=== PATIENT | male | born 1955 | race Caucasian/White ===

== ENCOUNTER 2023-09-08 09:30 | Emergency (ER) | payer OTHER ==
[~2023-09-08] VITALS: Ht 170.2 cm; Wt 56.1 kg
[2023-09-08 10:05] VITALS: PULSE 87; RESP 12; TEMP 97.8; O2SAT 94
[2023-09-08] MEDS: SODIUM CHLORIDE 0.9% 1,000 ML IV ONE (10:38)
[2023-09-08 10:51] LABS: Basophils # (auto) 0 10 ^3/uL (0-0.2); Basophils % (auto) 0.7 % (0.0-2.0); Eosinophils # (auto) 0.2 10 ^3/uL (0-0.8); Eosinophils % (auto) 3.3 % (0.0-7.0); Hemoglobin 10.9 g/dL (13.5-17.5); Lymphocytes # (auto) 1.1 10 ^3/uL (0.4-5.4); Lymphocytes % (auto) 16.3 % (10.0-50.0); Mean Corpuscular Hemoglobin 27.4 pg (28.0-32.0); Mean Corpuscular Volume 83.1 fL (80.0-100.0); Monocytes # (auto) 0.4 10 ^3/uL (0-1.3); Monocytes % (auto) 6.7 % (0.0-12.0); Neutrophils # (auto) 4.9 10 ^3/uL (1.6-8.6); Nucleated Red Blood Cells % 0.2 %; Red Blood Cells 3.97 10^6/uL (4.5-5.90); Red Cell Distribution Width 13.5 % (11.8-14.3); White Blood Cell 6.7 10^3/uL (4.4-10.8)
[2023-09-08 11:10] LABS: Alanine Aminotransferase 12 U/L (7-40); Alkaline Phosphatase 81 U/L (46-116); Anion Gap 7 (5-15); Aspartate Aminotransferase 18 U/L (13-40); BUN/Creatinine Ratio 13.8 (10.0-20.0); Blood Urea Nitrogen 20 mg/dL (9-23); Calcium 8.9 mg/dL (8.7-10.4); Carbon Dioxide 24 mmol/L (20-30); Chloride 104 mmol/L (98-107); Glucose 126 mg/dL (74-106); Lipase 36 U/L (12-53); Potassium 4.3 mmol/L (3.5-5.1); Sodium 135 mmol/L (136-145)
[2023-09-08 11:11] LABS: Bilirubin, Total 0.4 mg/dL (0.2-1.0); Total Protein 6.8 g/dL (5.7-8.2)
[2023-09-08 14:00] VITALS: BP 150/80; PULSE 79; RESP 14; O2SAT 98
[2023-09-08 14:05] LABS: Urine Bacteria None Seen /hpf (None Seen)
[2023-09-08 14:19] LABS: Urine Blood Negative /uL (Negative); Urine Clarity Clear (Clear); Urine Color Light-Yellow (Yellow); Urine Hyaline Cast FEW /lpf (0 - 2); Urine Protein, UAD 3+ (Negative); Urine Specific Gravity 1.019 (1.001-1.035); Urine Urobilinogen Normal (Negative); Urine WBC 1 /hpf (0 - 3); Urine pH 6.5 (5.0-9.0)
[2023-09-08] MEDS ORDERED: METR-344 PO (14:42)
[2023-09-08] MEDS ORDERED: LOP2C PO (14:42)
== END 2023-09-08 15:24 | disposition home or self-care (01) ==
LOC: ER 09:30
DX: R19.7 Diarrhea, unspecified (principal); I25.10 Atherosclerotic heart disease of native coronary artery without angina pectoris; Z95.1 Presence of aortocoronary bypass graft
CPT/HCPCS: 36415; 74176; 80053; 81001; 83690; 85025; 96360; 99284; J7030

== ENCOUNTER 2024-02-21 12:29 | Emergency (ER) | payer OTHER ==
[~2024-02-21] VITALS: Ht 170.2 cm; Wt 86.1 kg
[~2024-02-21 12:29] MED LIST: LOPE2CAP16 PO; METR-344 PO
[2024-02-21 13:48] LABS: Basophils # (auto) 0 10 ^3/uL (0-0.2); Basophils % (auto) 0.5 % (0.0-2.0); Eosinophils # (auto) 0.1 10 ^3/uL (0-0.8); Eosinophils % (auto) 2.1 % (0.0-7.0); Hematocrit 42.3 % (41.0-53.0); Hemoglobin 14.4 g/dL (13.5-17.5); Lymphocytes # (auto) 1.2 10 ^3/uL (0.4-5.4); Lymphocytes % (auto) 18.5 % (10.0-50.0); Mean Corpuscular Hemoglobin 29.3 pg (28.0-32.0); Mean Corpuscular Volume 86.2 fL (80.0-100.0); Monocytes # (auto) 0.3 10 ^3/uL (0-1.3); Monocytes % (auto) 5.5 % (0.0-12.0); Neutrophils # (auto) 4.6 10 ^3/uL (1.6-8.6); Neutrophils % (auto) 73.4 % (37.0-80.0); Platelet Count (auto) 174 10^3/uL (140-450); Red Cell Distribution Width 13.4 % (11.8-14.3); White Blood Cell 6.3 10^3/uL (4.4-10.8)
[2024-02-21 13:58] LABS: Alanine Aminotransferase 16 U/L (7-40); Alkaline Phosphatase 75 U/L (46-116); Anion Gap 5 (5-15); Aspartate Aminotransferase 16 U/L (13-40); BUN/Creatinine Ratio 10.8 (10.0-20.0); Blood Urea Nitrogen 17 mg/dL (9-23); CRP High Sensitivity 0.06 mg/dL (<1.0); Calcium 9.4 mg/dL (8.7-10.4); Carbon Dioxide 27 mmol/L (20-31); Chloride 102 mmol/L (98-107); Potassium 4.5 mmol/L (3.5-5.1); Sodium 134 mmol/L (136-145)
[2024-02-21 13:59] LABS: Bilirubin, Total 0.4 mg/dL (0.2-1.0); Total Protein 6.9 g/dL (5.7-8.2)
[2024-02-21 14:14] LABS: Glucose 432 mg/dL (74-106)
[2024-02-21] MEDS: SODIUM CHLORIDE 0.9% 1,000 ML IV ONE (15:15)
[2024-02-21 16:53] LABS: Erythrocyte Sedimentation Rate 29 mm/hr (0-20)
[2024-02-21 17:10] VITALS: O2SAT 97
[2024-02-21] MEDS: FUROSEMIDE 40 MG/4 ML VIAL IV ONE (17:49)
[2024-02-21] MEDS: InsuLIN REG 1unit/0.01ml Soln (100units/ml) IV ONE (17:49)
[2024-02-21 19:22] VITALS: BP 142/85; PULSE 78; RESP 16; O2SAT 97
== END 2024-02-21 19:29 | disposition home or self-care (01) ==
LOC: ER 12:29
DX: M79.605 Pain in left leg (principal); M79.604 Pain in right leg; E11.65 Type 2 diabetes mellitus with hyperglycemia; I10 Essential (primary) hypertension; I25.10 Atherosclerotic heart disease of native coronary artery without angina pectoris; Z95.1 Presence of aortocoronary bypass graft; Z95.5 Presence of coronary angioplasty implant and graft; Z90.49 Acquired absence of other specified parts of digestive tract; Z79.01 Long term (current) use of anticoagulants; Z79.82 Long term (current) use of aspirin
CPT/HCPCS: 36415; 80053; 82962; 83605; 83880; 85025; 85652; 86141; 93970; 96361; 96374; 96375; 99285; J1815; J1940; J7030

== ENCOUNTER 2024-06-07 13:18 | Emergency (ER) | payer OTHER ==
[~2024-06-07] VITALS: Ht 182.9 cm; Wt 97.7 kg
--- NOTE | 2024-06-07 13:38 | ED.PDOC ---
HPI (NEURO) HPI Comments 68 y.o female with PMHx of DM, hyperlipidemia, HTN, and NV, presents to the ED for a chief complaint of dizziness that started 2 weeks ago. Patient is usually ambulatory without assistance but stated for the past week dizziness has caused him to lose balance. Patient also presents with a 2 week history of bilateral leg swelling and diarrhea. Patient called his PCP today and was told to come into the ED for further evaluation. Patient denies any syncopal episodes, chest pain, SOB, fever, chills, nausea, vomiting, abdominal pain. No allergies reported and patient also denies any substance, alcohol or tobacco use. Time Seen by MD: 13:30 Primary Care Provider: out of area Reviewed Notes: Nurses Notes, Medications, Allergies Information Source: Patient Mode of Arrival: Wheelchair Severity: Moderate Dizziness/Weakness Severity: Unable to do activities Headache Severity: None Timing: Weeks (2) Duration: Since onset Onset: At rest Circumstances: Spontaneous History of: NV, DM, Hypertension Modifying factors: Nothing Associated Signs and Symptoms: Diarrhea Past Medical History PAST MEDICAL HISTORY: CAD, CVA, DM, High Lipids, HTN, NV Surgical History: CABG, Cholecystectomy Family History Family History: Unknown Social History Smoker: Non-Smoker Alcohol: Denies ETOH Use Drugs: Denies Drug Use Lives In: Home Constitutional: denies: chills, diaphoresis, fatigue, fever, malaise, sweats, weakness, others EENTM: denies: blurred vision, double vision, ear bleeding, ear discharge, ear drainage, ear pain, ear ringing, eye pain, eye redness, hearing loss, mouth pain, mouth swelling, nasal discharge, nose bleeding, nose congestion, nose pain, photophobia, tearing, throat pain, throat swelling, voice changes, others Respiratory: denies: cough, hemoptysis, orthopnea, SOB at rest, shortness of breath, SOB with excertion, stridor, wheezing, others Cardiovascular: denies: chest pain, dizzy spells, diaphoresis, Dyspnea on exertion, edema, irregular heart beat, left arm pain, lightheadedness, palpitations, PND, syncope, others Gastrointestinal: reports: diarrhea; denies: abdomen distended, abdominal pain, blood streaked bowels, constipated, dysphagia, difficulty swallowing, hematemesis, melena, nausea, poor appetite, poor fluid intake, rectal bleeding, rectal pain, vomiting, others Genitourinary: denies: burning, dysuria, flank pain, frequency, hematuria, incontinence, penile discharge, penile sore, pain, testicle pain, testicle swelling, urgency, others Neurological: reports: dizziness; denies: fainting, headache, left sided numbness, left sided weakness, numbness, paresthesia, pre-existing deficit, right sided numbness, right sided weakness, seizure, speech problems, tingling, tremors, weakness, others Musculoskeletal: reports: others (bilateral leg swelling ); denies: back pain, gout, joint pain, joint swelling, muscle pain, muscle stiffness, neck pain Integumetry: denies: bruises, change in color, change in hair/nails, dryness, laceration, lesions, lumps, rash, wounds, others Allergic/Immunocompromised: denies: Difficulty Healing, Frequent Infections, Hives, Itching, others Hematologic/Lymphatic: denies: anemia, blood clots, easy bleeding, easy bruising, swollen glands, others Endocrine: denies: excessive hunger, excessive sweating, excessive thirst, excessive urination, flushing, intolerance to cold, intolerance to heat, unexplained weight gain, unexplained weight loss, others Psychiatric: denies: anxiety, bipolar disorder, depression, hopeless, panic disorder, schizophrenia, sleepless, suicidal, others All Other Systems: Reviewed and Negative Physical Exam General Appearance: Moderate Distress HEENT: Normal ENT Inspection, Pharynx Normal, TMs Normal Neck: Full Range of Motion, Non-Tender, Normal, Normal Inspection Respiratory: Chest Non-Tender, Lungs Clear, No Accessory Muscle Use, No R espiratory Distress, Normal Breath Sounds Cardiovascular: No Edema, No JVD, No Murmur, No Gallop, Normal Peripheral Pulses, Regular Rate/Rhythm Breast Exam: Deferred Gastrointestinal: No Organomegaly, Non Tender, No Pulsatile Mass, Normal Bowel Sounds, Soft Genitalia: Deferred Pelvic: Deferred Rectal: Deferred Extremities: No calf tenderness, Normal capillary refill, Normal inspection, Normal range of motion, Non-tender, No pedal edema Musculoskeletal : Apperance: Normal Neurologic: Alert, printing assistant II-XII nml as Tested, No Motor Deficits, Normal Affect, Normal Mood, No Sensory Deficits Cerebellar Function: Normal Reflexes: Normal Skin: Dry, Normal Color, Warm Lymphatic: No Adenopathy EKG EKG : Pulse Rate (adult): 93 Cardiac Rhythm: NSR Hypertrophy: JOHN PAUL, LVH Was a procedure done? Was a procedure done?: No Differential Diagnosis (SZ) Seizure: Other General Weakness: Dehydration, Vertigo: central, Vertigo: peripheral, Vestibular neuronitis X-Ray, Labs, Meds, VS Vital Signs Date Time Temp Pulse Resp B/P (MAP) Pulse Ox O2 Delivery O2 Flow Rate FiO2 06/07/24 15:31 94 16 98 Room Air* 0 21 06/07/24 15:23 97.5 94 16 117/76 (90) 98 97.5 06/07/24 13:47 97.6 97 16 113/83 (93) 99 06/07/24 13:46 93 06/07/24 13:39 93 Lab Test 06/07/24 15:29 06/07/24 15:16 06/07/24 13:51 06/07/24 13:33 Range/Units POC Glucose 461 *H 439 *H 70-106 mg/dl Troponin I High Sensitivity Pending 49 </=54 ng/L White Blood Count 9.1 4.4-10.8 10^3/uL Red Blood Count 5.28 4.5-5.90 10^6/uL Hemoglobin 15.2 13.5-17.5 g/dL Hematocrit 44.6 41.0-53.0 % Mean Corpuscular Volume 84.5 80.0-100.0 fL Mean Corpuscular Hemoglobin 28.7 28.0-32.0 pg Mean Corpuscular Hemoglobin Concent 34.0 32.0-36.0 g/dL Red Cell Distribution Width 13.4 11.8-14.3 % Platelet Count 166 140-450 10^3/uL Mean Platelet Volume 10.5 6.9-10.8 fL Neutrophils (%) (Auto) 75.7 37.0-80.0 % Lymphocytes (%) (Auto) 16.6 10.0-50.0 % Monocytes (%) (Auto) 6.0 0.0-12.0 % Eosinophils (%) (Auto) 1.3 0.0-7.0 % Basophils (%) (Auto) 0.4 0.0-2.0 % Neutrophils # (Auto) 6.9 1.6-8.6 10 ^3/uL Lymphocytes # (Auto) 1.5 0.4-5.4 10 ^3/uL Monocytes # (Auto) 0.5 0-1.3 10 ^3/uL Eosinophils # (Auto) 0.1 0-0.8 10 ^3/uL Basophils # (Auto) 0 0-0.2 10 ^3/uL Nucleated Red Blood Cells 0.0 % Sodium Level 131 L 136-145 mmol/L Potassium Level 4.4 3.5-5.1 mmol/L Chloride Level 97 L 98-107 mmol/L Carbon Dioxide Level 26 20-31 mmol/L Anion Gap 8 5-15 Blood Urea Nitrogen 22 9-23 mg/dL Creatinine 1.84 H 0.700-1.30 mg/dL Glomerular Filtration Rate Calc 39 >90 mL/min BUN/Creatinine Ratio 12.0 10.0-20.0 Serum Glucose 461 *H 74-106 mg/dL Calcium Level 9.3 8.7-10.4 mg/dL B-Type Natriuretic Peptide 371.52 0-100 pg/mL Test 06/07/24 13:32 Range/Units POC Glucose 459 *H 70-106 mg/dl Current Medications Medications (Trade) Dose Ordered Sig/Alycia Route Start Time Stop Time Status Last Admin Sodium Chloride 250 ml @ 250 mls/hr Q1H ONCE IV 06/07/24 15:00 06/07/24 15:59 06/07/24 15:38 Insulin Human Regular (InsuLIN R) 5 units ONCE ONCE IV 06/07/24 15:00 06/07/24 15:01 DC 06/07/24 15:39 Time of 1ST Reevaluation: 13:33 Reevaluation 1ST: Unchanged Patient Education/Counseling: Diagnosis, Treatment, Prognosis Family Education/Counseling: No Family Present Departure 1 Departure Time of Disposition: 15:54 Impression: Primary Impression: Diabetes type 2, uncontrolled Qualified Codes: E11.65 - Type 2 diabetes mellitus with hyperglycemia Additional Impression: Generalized weakness Disposition: 09 ADMITTED INPATIENT Admit to: Tele Condition: Fair Critical Care Note Critical Care Time?: No Stability Stability form required: Yes Unstable for transfer: Telemetry monitoring (Telemetry monitoring required), ED Physician Assesment (Clinical assesment) I personally scribed for ASHLEY KEY MD ([email or web address]) on 1/31/25 at 13:38. Electronically submitted by Anne-Marie Morales ([facility]). I personally scribed for ASHLEY KEY MD ([email or web address]) on 06/07/24 at 13:46. Electronically submitted by Anne-Marie Morales ([facility]). ASHLYE KEY MD Jun 07, 2024 13:38
[2024-06-07 14:24] LABS: Basophils # (auto) 0 10 ^3/uL (0-0.2); Basophils % (auto) 0.4 % (0.0-2.0); Eosinophils # (auto) 0.1 10 ^3/uL (0-0.8); Eosinophils % (auto) 1.3 % (0.0-7.0); Hematocrit 44.6 % (41.0-53.0); Hemoglobin 15.2 g/dL (13.5-17.5); Lymphocytes # (auto) 1.5 10 ^3/uL (0.4-5.4); Lymphocytes % (auto) 16.6 % (10.0-50.0); Mean Corpuscular Hemoglobin 28.7 pg (28.0-32.0); Mean Corpuscular Volume 84.5 fL (80.0-100.0); Monocytes # (auto) 0.5 10 ^3/uL (0-1.3); Neutrophils # (auto) 6.9 10 ^3/uL (1.6-8.6); Neutrophils % (auto) 75.7 % (37.0-80.0); Platelet Count (auto) 166 10^3/uL (140-450); Red Blood Cells 5.28 10^6/uL (4.5-5.90); Red Cell Distribution Width 13.4 % (11.8-14.3); White Blood Cell 9.1 10^3/uL (4.4-10.8)
[2024-06-07 14:27] LABS: Potassium 4.4 mmol/L (3.5-5.1)
[2024-06-07 14:28] LABS: Anion Gap 8 (5-15); Calcium 9.3 mg/dL (8.7-10.4); Carbon Dioxide 26 mmol/L (20-31); Chloride 97 mmol/L (98-107); Sodium 131 mmol/L (136-145)
[2024-06-07 14:33] LABS: Blood Urea Nitrogen 22 mg/dL (9-23)
[2024-06-07 14:43] LABS: Glucose 461 mg/dL (74-106)
--- NOTE | 2024-06-07 15:21 | DVH ---
CLINICAL INFORMATION: 68 years old, Male; dizziness. TECHNIQUE: Axial imaging was obtained through the brain without contrast. Coronal and sagittal refor matted images were obtained, reviewed, and stored. Images were reviewed in brain and bone windows. A ll CT scans at this medical facility are performed using dose modulation techniques as appropriate to a performed exam including the following: Automated exposure control was utilized; adjustment of the MA and/or KV according to patient size; and use of iterative reconstruction technique. CTDIvol = 58.63 mGy DLP = 938.71 mGy-cm COMPARISON: None FINDINGS: There is no acute intracranial hemorrhage or extraaxial fluid collection. No mass effect o r midline shift. Areas of encephalomalacia are seen in the left frontal and temporal lobes. Scattered areas of hypoattenuation are seen in the periventricular and subcortical white matter, which are non specific but most likely sequelae of small vessel ischemic disease. Atrophic changes with prominence of the ventricles and widening of the sulci. Basal cisterns are patent. Postsurgical changes of p rior left craniectomy. There is calcification/ossification along portions of the craniectomy site. Pa ranasal sinuses and mastoid air cells are clear. IMPRESSION: 1. No acute intracranial abnormality. 2. Sequelae of postsurgical changes and nonacute findings as detailed above.
[2024-06-07 15:31] VITALS: PULSE 94; RESP 16; O2SAT 98
[2024-06-07] MEDS: SODIUM CHLORIDE 0.9% 250 ML IV ONE (15:38)
[2024-06-07] MEDS: InsuLIN REG 1unit/0.01ml Soln (100units/ml) IV ONE (15:39)
[2024-06-07 19:03] LABS: Urine Bacteria None Seen /hpf (None Seen)
[2024-06-07 19:30] LABS: Urine Blood TRACE /uL (Negative); Urine Clarity Clear (Clear); Urine Color Light-Yellow (Yellow); Urine Protein, UAD 3+ (Negative); Urine Specific Gravity 1.032 (1.001-1.035); Urine Squamous Epithelial Cell FEW /hpf (<5); Urine Urobilinogen Normal (Negative); Urine WBC 1 /HPF (0-3)
[2024-06-07 20:51] VITALS: PULSE 89; RESP 16; O2SAT 97
[2024-06-08 03:20] VITALS: TEMP 98.7
[2024-06-08 04:00] VITALS: PULSE 89; RESP 13; O2SAT 97
--- NOTE | 2024-06-08 06:25 | ECG ---
[facility] Test Date: 2024-06-07 Test Time: 13:39:09 Pat Name: KEENA STOKES Department: ER Room: Gender: M Costume Maker: CHAGO : 1955 Requested By: ASHLEY KEY Order Number: [id number] Reading MD: Measurements Intervals [place] Rate: 93 P: 94 MD: 235 QRS: 86 QRSD: 80 T: -89 QT: 321 QTc: 400 Interpretive Statements Sinus tachycardia Multiple ventricular premature complexes Prolonged MD interval Borderline right axis deviation Probable LVH with secondary repol abnrm Please click the below link to view image of tracing.
[2024-06-08 06:30] VITALS: BP 105/65; PULSE 84; RESP 14; O2SAT 94
[2024-06-08] MEDS: INSULIN LANTUS (GLARGINE) 1 /0.01ml (100units/ml) SC ONE (06:56)
--- NOTE | 2024-06-08 08:14 | DVHDS2 ---
Physician Discharge Progress N Final Diagnosis: DM, CKD, CAD Operations or Procedures: Operations or Procedures none Other Interventions Other Interventions Lab results, CT head, EKG Consultations: Consultations none Commentary: Commentary 68 y.o. male with DM, CAD, CKD was brought to the ED c/o dizziness when he walks. Per nurse, patient walked to the bathroom without assistance, not dizzy. Patient told me he has problems with his toe nails and cannot trim them himself and that makes it difficult for him to walk. In addition his glucose level was 400 and he informed me that his sugal level in AM is about 400 usually. Patient has never visited clinical data associate, resource forester, sales and service associate. He has not seen a specialist field engineer since his heart surgery 2 years ago. Patient was discharged and instructed to follow all the above specialists. The appointments will be scheduled by [facility] medical management Condition on Discharge: Stable Disposition: Home SNF Discharge Will this Physician continue t: No Discharge Instructions: Diet: Consistent carbohydrate Activity: No Restrictions, As Tolerated Follow Up/Referral: Firer Retort, Physics And Astronomy Professor, Detective, Optical Worker appointments to be shcheduled by [facility] medical [facility] Medications: Continue home medications Follow Up Care: Discharge Statement: "Patient was advised to return to the ER or call 911 if any headaches, dizz iness, shortness of breath, chest pain, abdominal pain, bleeding, fevers, or worsening of medical condition. Patient was counseled about treatment plan, medications, possible side effects, patientverbalized understanding. All questions were answered to the best of my ability. This discharge took greater then 30 minutes in planning, reviewing documentation, counseling the patient, and discussing with other team members." BARTOLOME MORILLO MD Jun 08, 2024 08:14
== END 2024-06-08 06:59 | disposition home or self-care (01) ==
LOC: ER 13:18
DX: E11.65 Type 2 diabetes mellitus with hyperglycemia (principal); R53.1 Weakness; I25.10 Atherosclerotic heart disease of native coronary artery without angina pectoris; I25.2 Old myocardial infarction; E78.5 Hyperlipidemia, unspecified; I10 Essential (primary) hypertension; R19.7 Diarrhea, unspecified; Z86.73 Personal history of transient ischemic attack (TIA), and cerebral infarction without residual deficits; Z95.1 Presence of aortocoronary bypass graft; Z90.49 Acquired absence of other specified parts of digestive tract
CPT/HCPCS: 36415; 70450; 80048; 81001; 82962; 83880; 84484; 85025; 93005; 96374; 99284; J1815